=== PATIENT | female | born 1995 | race Caucasian/White ===

== ENCOUNTER 2020-05-05 18:51 | Emergency (ER) | payer OTHER, SELFPAY ==
[2020-05-05 19:10] VITALS: BP 127/73; PULSE 78; RESP 17; TEMP 36.9; O2SAT 99
--- NOTE | 2020-05-05 19:13 | ED.DENTAL ---
HPI - Dental/Oral General Chief complaint: Dental/Oral Stated complaint: infected teeth Time Seen by Provider: 05/05/20 19:13 Source: patient Mode of arrival: ambulatory Limitations: no limitations History of Present Illness HPI Narrative: 24-year-old woman comes in today complaining of a toothache that has gotten worse over the last 3 days. He states that the pain is in her right upper molars she also has some pain in her right lower molars and her left lower molars. She has had pain off and on for a year. She denies fever, nausea, vomiting, difficulty swallowing, difficulty breathing. She complains of a right earache as well. MD Complaint: tooth pain Teeth map: 1. Pain Onset (ago): day(s) (3) Duration: constant Severity: moderate Relieving factors: nothing Exacerbating factors: chewing and cold Context: history of dental caries Associated symptoms: ear pain Treatment prior to arrival: oral analgesic Related Data Allergies Allergy/AdvReac Type Severity Reaction Status Date / Time Bleach (Sodium Hypochlorite) Allergy Unknown Verified 11/22/18 16:21 Review of Systems Constitutional: Constitutional: Denies chills, Denies fever(s) and Denies weakness Eyes: Eyes: Denies change in vision and Denies photophobia ENT: Denies dysphagia, Denies nasal congestion and Denies sore throat Cardiovascular: Cardiovascular: Denies chest pain and Denies radiating jaw, neck or arm pain Respiratory: Respiratory: Denies cough, Denies dyspnea and Denies wheezing Gastrointestinal: Gastrointestinal: Denies nausea and Denies vomiting Musculoskeletal: Musculoskeletal: Denies arthralgias and Denies joint swelling Integumentary/Breasts: Skin/Breast: Denies pruritus, Denies erythema and Denies rash Neurologic: Denies vertigo, Denies dizziness, Denies syncope, Denies headache(s), Denies focal weakness and Denies numbness Hematologic/Lymphatic: Hematologic/Lymphatic: Denies easy bleeding and Denies easy bruising Allergic/Immunologic: Allergic/Immunologic: Denies lip swelling and Denies wheezing PMFSH Social History Social History Smoking status: Current some day smoker Tobacco type: cigarettes Alcohol intake: current Alcohol use details: occasional Substance use: current Substance use type: marijuana Living arrangements: with family Exam Const: General: healthy appearing, no acute distress and alert Orientation/consciousness: patient oriented x3 Limitations: no limitations HENMT: Head: normal to inspection Ears: external ears normal, TM's normal bilaterally and EAC's normal Face and sinus: normal facial exam Mouth: Yes Normal oral and palatal mucosa present and Yes moist mucous membranes Throat: posterior oropharynx normal and uvula midline Other: Tender at #1. No gingival or buccal swelling. Eyes: Conjunctivae: conjunctivae normal Pupils: Equal, round and reactive pupils present EOM: EOMs intact bilaterally Neck: Neck: normal visual inspection and no lymphadenopathy Resp: Effort & Inspection: normal respiratory effort and not labored Auscultation: clear to auscultation bilaterally, no rales, no rhonchi and no wheezes Cardio: Rate: regular rate Rhythm: regular rhythm Heart sounds: no murmurs Skin: General skin exam: normal color, no jaundice and no pallor Rashes: no rashes Neuro: General: patient oriented x3, moves all extremities, no focal motor deficits and CN's II-XI intact bilaterally Speech: normal speech Extrem: General: normal to inspection and no clubbing, cyanosis or edema Psych: Appearance: grossly normal and well kempt Mental Status: mental status grossly normal Affect: normal affect Attitude: cooperative Thought content: Yes Normal thought content present Discharge Plan Discharge Clinical Impression: Toothache Patient Disposition: Home, Self-Care Condition: Stable Instructions: Antibiotic Form, Toothache (ED)
== END 2020-05-05 19:30 | disposition home or self-care (01) ==
PROVIDERS: Emergency Provider Emergency Medicine; PCP Internal Medicine
DX: K08.89 Other specified disorders of teeth and supporting structures (principal)
CPT/HCPCS: 99283

== ENCOUNTER 2020-06-09 14:03 | Emergency (ER) | payer OTHER, SELFPAY ==
[2020-06-09 14:04] VITALS: BP 144/83; PULSE 52; RESP 20; TEMP 36.9; O2SAT 99
--- NOTE | 2020-06-09 14:08 | ED.ABDPAIN ---
HPI - Abdominal Pain General Chief Complaint: Abdominal Pain Stated Complaint: emesis Time Seen by Provider: 06/09/20 14:05 Source: RN notes reviewed History of Present Illness HPI narrative: Patient presents emergency department from home via EMS for abdominal pain. Patient states that she has had abdominal pain described as cramping for the past 2 days. Is been associated nausea vomiting and diarrhea. States he took no previous medication for the symptoms. Denies any fevers or chills chest pain shortness of breath or any other symptoms Related Data Allergies Allergy/AdvReac Type Severity Reaction Status Date / Time Bleach (Sodium Hypochlorite) Allergy Unknown Rash Verified 06/09/20 14:09 Review of Systems Review of Systems: Narrative: Gen.: Denies fevers or chills ENT: Denies congestion Respiratory: Denies shortness of breath or cough CV: Denies chest pain or palpitations GI: See HPI denies burning, urgency, frequency or hematuria Musculoskeletal: Denies back pain or muscle pain Neuro: Denies numbness, tingling, weakness or focal weakness Skin: Denies rash Except as documented, all other systems reviewed and negative FOR[facility]LY [facility], [facility] Past Medical History Medical History (Updated 06/09/20 @ 17:11 by Ivan Vanegas DO) Patient denies significant medical history Social History Social History (Updated 06/09/20 @ 14:08 by Ivan Vanegas DO) Smoking status: Former smoker Tobacco type: cigarettes Alcohol intake: current Substance use: current Substance use type: marijuana Exam Narrative: Exam Narrative: APPEARANCE: No acute distress, nontoxic, resting in bed HEENT: Normocephalic, atraumatic, oromucosa dry RESPIRATORY: No respiratory distress, clear to auscultation bilaterally with no rhonchi wheezing or rales CARDIOVASCULAR: RRR s murmur ABDOMINAL: Soft, nondistended, diffusely tender to palpation, no rebound or guarding MUSCULOSKELETAl: Moves all extremities. No clubbing, cyanosis or edema. NEURO: Awake and alert. Following commands, speech normal, no focal deficits SKIN:: Warm, dry. Normal Color PSYCHIATRIC: Normal affect/mood Course Course Emergency Course: Patient states that they are feeling much better at this time. States abdominal pain has resolved. Repeat abdominal exam shows the patient's abdomen to be soft and nontender. Discussed with patient results of workup and diagnosis. Discussed need for follow-up with primary care physician, reasons to return to the emergency department in proper use of medication. Patient understands and agrees to current treatment plan Vital Signs Vital signs: Vital Signs Temperature 98.4 F 06/09/20 14:04 Pulse Rate 52 L 06/09/20 14:04 Respiratory Rate 06/09/20 14:04 Blood Pressure 144/83 H 06/09/20 14:04 Pulse Oximetry 99 06/09/20 14:04 Temperature 98.4 F 06/09/20 14:04 Pulse Rate 52 L 06/09/20 14:04 Respiratory Rate 06/09/20 14:04 Blood Pressure 144/83 H 06/09/20 14:04 Pulse Oximetry 99 06/09/20 14:04 MDM - Abdominal Pain MDM Narrative Medical decision making narrative: Patient's abdomen is soft without significant pain or signs of surgical abdomen on serial exams. Lab and x-ray evaluations are reviewed and patient is felt to be a reasonable candidate for outpatient management. Patient was instructed as to limitations of x-ray and laboratory evaluation and encouraged to return to ED or primary physician for repeat exam in 12 hours if continued or worsening pain Lab Data Result diagrams: 06/09/20 14:19 06/09/20 14:19 Labs: Lab Results 06/09/20 06/09/20 06/09/20 Range/Units 14:19 14:19 15:43 WBC 18.6 H (4.5-10.0) K/mm3 RBC 5.01 (4.2-5.4) M/mm3 Hgb 15.5 H (12.0-15.0) g/dL Hct 44.0 (37.0-47.0) % MCV 87.8 (80-100) fl MCH 30.9 (26-34) pg MCHC 35.2 (32-36) g/dl RDW 12.9 (11.5-14.5) % Plt Count 256 (150-375) k/mm3 MPV 10.9 H (7.4-10.4) fl Im
[2020-06-09 14:27] LABS: Basophils Absolute Auto 0.1 K/mm3 (0.0-0.1); Basophils Percent Auto 0.3 % (0.2-1.2); Eosinophils Percent Auto 0.1 % (0-4.4); Hemoglobin 15.5 g/dL (12.0-15.0); Immature Granulocyte Absolute 0.11 K/mm3 (0.00-0.031); Immature Granulocyte Percent A 0.6 % (0-0.5); Immature Platelet Fraction Pct 7.7 % (0.9-11.2); Lymphocytes Absolute Auto 1.54 K/mm3 (0.9-3.2); Lymphocytes Percent Auto 8.3 % (18.3-44.2); Mean Corpuscular HGB Conc 35.2 g/dl (32-36); Mean Corpuscular Hemoglobin 30.9 pg (26-34); Mean Corpuscular Volume 87.8 fl (80-100); Mean Platelet Volume 10.9 fl (7.4-10.4); Monocytes Absolute Auto 1.3 K/mm3 (0.1-0.6); Monocytes Percent Auto 7.2 % (2.6-8.5); Neutrophils Absolute Auto 15.6 K/mm3 (1.3-6.7); Neutrophils Percent Auto 83.5 % (45.5-73.1); Platelet Count Result 256 k/mm3 (150-375); Red Blood Count 5.01 M/mm3 (4.2-5.4); Red Cell Distribution Width 12.9 % (11.5-14.5); White Blood Count 18.6 K/mm3 (4.5-10.0)
[2020-06-09 14:29] LABS: Platelet Estimate Adequate (Adequate)
[2020-06-09 14:47] LABS: Alanine Aminotransferase 13 U/L (4-35); Albumin Level 4.8 g/dL (3.5-5.1); Alkaline Phosphatase 90 U/L (38-126); Anion Gap 18.2 mmol/L (7-16); Aspartate Amino Transferase 21 U/L (14-36); Bilirubin,Total 1.5 mg/dL (0.2-1.3); Blood Urea Nitrogen 8 mg/dL (7-17); Calcium 9.7 mg/dL (8.4-10.2); Carbon Dioxide 19 mmol/L (22-30); Chloride 103 mmol/L (98-107); Estimated CRCL calculation 172 ml/min; Estimated Glomerular Filt Rate > 60; Glucose 112 mg/dL (65-105); Lipase 43 U/L (23-300); Potassium 3.2 mmol/L (3.4-5.0); Sodium 137 mmol/L (137-145)
[2020-06-09] MEDS: ONDANSETRON INJ 4 MG/2 ML VIAL IV PUSH (14:47)
[2020-06-09] MEDS: SODIUM CHLORIDE 0.9% IV 1,000 ML 999 ML IV CONT ×2 (14:47→15:45)
[2020-06-09 15:58] LABS: Add Urine Microscopic? YES; Appearance Urine Clear (Clear); Bacteria Urine Trace /hpf; Bilirubin Urine Negative (Negative); Blood Urine Negative (Negative); Color Urine Yellow (Yellow); Glucose Urine UA Negative (Negative); Ketones Urine 2+ mg/dL (Negative); Leukocyte Esterase Ur Negative LEU/UL (Negative); Mucus Urine Heavy /lpf; Nitrate Urine Negative (Negative); Protein Urine 2+ mg/dL (Negative); RBC Urine 0-2 /hpf (0-2); Squamous Epithelial Cell Urine Moderate /hpf (Few); Urobilinogen Urine Negative mg/dL (<2.0)
[2020-06-09 16:12] LABS: Specific Grav Ur 1.038 (1.001-1.035)
--- NOTE | 2020-06-09 17:08 | PC.NURSE ---
Denies further heartburn. No emesis since receiving meds.
[2020-06-09] MEDS: POTASSIUM CHLORIDE 20 MEQ TABLET PO (17:24)
== END 2020-06-09 17:24 | disposition home or self-care (01) ==
PROVIDERS: Emergency Provider Emergency Medicine; PCP Internal Medicine
DX: R10.9 Unspecified abdominal pain (principal); R11.2 Nausea with vomiting, unspecified; R19.7 Diarrhea, unspecified; Z87.891 Personal history of nicotine dependence
CPT/HCPCS: 36415; 80053; 81001; 81025; 83690; 85025; 85055; 96361; 96374; 96375; 99284; A9270; J0131; J2405; J7030

== ENCOUNTER 2021-10-31 10:16 | Emergency (ER) | payer OTHER, SELFPAY ==
--- NOTE | 2021-10-31 10:35 | ED.DENTAL ---
HPI - Dental/Oral General Chief complaint: Dental/Oral Stated complaint: Infected tooth Source: patient Mode of arrival: ambulatory Limitations: no limitations History of Present Illness HPI Narrative: Left lower tooth pain, having pain for several days, no fevers no N/v. Calling dentists to get appointment. Alternating tylenol and motrin. Complaint: tooth pain Onset (ago): day(s) Duration: constant Severity: severe Context: history of dental caries Associated symptoms: gum swelling Treatment prior to arrival: oral analgesic (tylenol and motrin) and other Related Data Allergies Allergy/AdvReac Type Severity Reaction Status Date / Time Bleach (Sodium Hypochlorite) Allergy Unknown Rash Verified 06/09/20 14:09 Review of Systems Constitutional: Constitutional: Reports no additional constitutional complaints Eyes: Eyes: Reports no additional eye complaints ENT: Reports system reviewed and no additional complaints, except as documented Cardiovascular: Cardiovascular: Reports no additional cardiovascular complaints Respiratory: Respiratory: Reports no additional respiratory complaints Gastrointestinal: Gastrointestinal: Reports no additional gastrointestinal complaints Musculoskeletal: Musculoskeletal: Reports no additional musculoskeletal complaints Integumentary/Breasts: Skin/Breast: Reports system reviewed and no additional complaints, except as docu Neurologic: Reports system reviewed and no additional complaints, except as documented Psychiatric: Psychiatric: Reports no additional psychiatric complaints Endocrine: Endocrine: Reports no additional endocrine complaints Hematologic/Lymphatic: Hematologic/Lymphatic: Reports no additional hematologic/lymphatic complaints Allergic/Immunologic: Allergic/Immunologic: Reports no additional allergic/immunologic complaints PMFSH Past Medical History Medical History Patient denies significant medical history Social History Social History Smoking status: Former smoker Tobacco type: cigarettes Alcohol intake: current Alcohol use details: occasional Substance use: current Substance use type: marijuana Exam Const: General: no acute distress and alert Nutritional Appearance: well nourished Orientation/consciousness: patient oriented x3 HENMT: Head: normal to inspection Teeth and gingiva: abnormal tooth and associated gingiva (dental fracture and localized gum swelling. No abscess, no erythema) Eyes: Conjunctivae: conjunctivae normal Pupils: Equal, round and reactive pupils present EOM: EOMs intact bilaterally Neck: Neck: normal visual inspection and no lymphadenopathy Chest: Chest palpation & inspection: normal inspection of the chest Resp: Effort & Inspection: normal respiratory effort Auscultation: clear to auscultation bilaterally Cardio: Rate: regular rate Rhythm: regular rhythm GI: GI Palp: Yes Soft to palpation and No Tenderness to palpation present (GI) : General: Yes no CVA tenderness Back/Spine/Pelvis: Back: no CVA tenderness Skin: General skin exam: normal color Rashes: no rashes Neuro: General: patient oriented x3 and moves all extremities Extrem: General: normal to inspection and no edema Psych: Appearance: grossly normal Mental Status: mental status grossly normal Discharge Plan Discharge Clinical Impression: Toothache, Dental abscess Patient Disposition: Home, Self-Care Condition: Stable Instructions: Antibiotic Form, Dental Abscess (ED) Prescriptions: New amoxicillin-pot clavulanate [Augmentin] 875-125 mg tablet 1 tablet PO Q12H Qty: 20 RF: 0 No Action ibuprofen [IBU] 600 mg tablet 600 mg PO Q6H PRN (Reason: pain) Qty: 20 RF: 0 ondansetron 4 mg tablet,disintegrating 4 mg PO Q6H PRN (Reason: nausea and vomiting) Qty: 10 RF: 0 famotidine [Pepcid] 20 mg tab
[2021-10-31 10:36] VITALS: BP 139/84; PULSE 62; RESP 20; TEMP 37.1; O2SAT 99
[2021-10-31 10:57] VITALS: PULSE 60; RESP 20; O2SAT 98
== END 2021-10-31 10:58 | disposition home or self-care (01) ==
PROVIDERS: Emergency Provider Emergency Medicine; PCP Internal Medicine
DX: K08.89 Other specified disorders of teeth and supporting structures (principal); K04.7 Periapical abscess without sinus
CPT/HCPCS: 99283

== ENCOUNTER 2023-01-16 03:50 | Emergency (ER) | payer OTHER, SELFPAY ==
[2023-01-16 03:59] VITALS: BP 132/100; PULSE 68; RESP 20; TEMP 36.4; O2SAT 100
--- NOTE | 2023-01-16 04:09 | ED.GENADULT ---
HPI - General Adult General Chief complaint: Unspecified Stated complaint: Vomiting History of Present Illness HPI narrative: Pt presents with nausea, vomiting, and diarrhea for 4 days. Pt says it's worst in morning. She vomits 4-5 times during day and has several loose stools in a day. Pt says she is not able to keep anything down. Pt denies fever or abdominal pain Related Data Allergies Allergy/AdvReac Type Severity Reaction Status Date / Time Bleach (Sodium Hypochlorite) Allergy Unknown Rash Verified 06/09/20 14:09 fluoxetine AdvReac Other Verified 01/16/23 04:04 Review of Systems Review of Systems: All systems reviewed & are unremarkable except as noted in HPI and below PMFSH Past Medical History Medical History Patient denies significant medical history Social History Social History Smoking status: Former smoker Tobacco type: cigarettes Alcohol intake: current Alcohol use details: occasional Substance use: current Substance use type: marijuana Living arrangements: with family Exam Const: General: cooperative, healthy appearing, no acute distress and alert HENMT: Mouth: Yes Normal oral and palatal mucosa present Neck: Neck: normal visual inspection, full ROM, no lymphadenopathy and no meningeal signs Resp: Effort & Inspection: normal respiratory effort and able to speak in complete sentences Auscultation: clear to auscultation bilaterally Cardio: Rate: regular rate Rhythm: regular rhythm GI: Inspection: normal to inspection GI Palp: Yes Soft to palpation and No Tenderness to palpation present (GI) Auscultation: normal bowel sounds Back/Spine/Pelvis: Back: no CVA tenderness Skin: General skin exam: normal color and no rashes or lesions noted Neuro: General: patient oriented x3, moves all extremities and no focal motor deficits Extrem: General: normal to inspection, full ROM and no clubbing, cyanosis or edema Psych: Appearance: grossly normal Mental Status: mental status grossly normal Speech and movement: Normal speech and movement present Affect: normal affect Attitude: cooperative Thought process: Normal thought process present Thought content: Yes Normal thought content present Insight: Good insight present (Psych) Judgement: Good judgement present (Psych) Course Vital Signs Vital signs: Vital Signs Temperature 97.5 F L 01/16/23 03:59 Pulse Rate 68 01/16/23 03:59 Respiratory Rate 20 01/16/23 03:59 Blood Pressure 132/100 H 01/16/23 03:59 Pulse Oximetry 100 01/16/23 03:59 Oxygen Delivery Room Air 01/16/23 03:59 Temperature 97.5 F L 01/16/23 03:59 Pulse Rate 55 L 01/16/23 06:30 Respiratory Rate 18 01/16/23 06:30 Blood Pressure 131/87 01/16/23 06:30 Pulse Oximetry 100 01/16/23 06:30 Oxygen Delivery Room Air 01/16/23 03:59 Medical Decision Making MDM Narrative Medical decision making narrative: gastroentertitis most likely with non tender abdomen. pt says is not but will check due to morning predominence. may have electrolyte abnormality so will check labs give IVF and zofran. zofran x2, still nauseated, compazine 10 mg still nauseated but not vomiting. Pt admitted to cannabis use but unable to give haldol because of potential qt prolongation with zofran, gave reglan and benadryl with some relief. 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 Vital Signs Vital Signs: Vital Signs Temperature 97.5 F L 01/16/23 03:59 Pulse Rate 68 01/16/23 03:59 Respiratory Rate 20 01/16/23 03:59 Blood Pressure 132/100 H 01/16/23 03:59 Pulse Oximetry 100 01/16/23 03:59 Oxygen Delivery Room Air 01/16/23 03:59 Temperature 97.5 F L 01/16/23 03:59 Pulse Rate 55 L 01/16/23 06:30 Respiratory Rate 18 01/16/23 06:30 Blood Pre
[2023-01-16] MEDS: SODIUM CHLORIDE 0.9% IV 1,000 ML 999 ML IV CONT ×2 (04:13→05:08)
[2023-01-16] MEDS: ONDANSETRON INJ 4 MG/2 ML VIAL IV PUSH ×2 (04:18→04:33)
[2023-01-16 04:34] LABS: Basophils Absolute Auto 0.04 K/mm3 (0.00-0.10); Basophils Percent Auto 0.4 % (0.0-1.0); Eosinophils Absolute Auto 0.05 K/mm3 (0.02-0.50); Eosinophils Percent Auto 0.5 % (1.0-6.0); Hematocrit 40.1 % (35.0-49.0); Hemoglobin 13.8 g/dL (12.0-15.0); Immature Granulocyte Absolute 0.03 K/mm3 (0.00-0.00); Immature Granulocyte Percent A 0.3 % (0.0-0.0); Lymphocytes Absolute Auto 1.64 K/mm3 (1.10-4.50); Lymphocytes Percent Auto 15.6 % (18.0-42.0); Mean Corpuscular HGB Conc 34.4 g/dL (32.0-36.0); Mean Corpuscular Hemoglobin 30.4 pg (27.0-31.0); Mean Corpuscular Volume 88.3 fL (78.0-102.0); Mean Platelet Volume 10.9 fl (9.2-11.8); Monocytes Absolute Auto 0.78 K/mm3 (0.10-0.90); Monocytes Percent Auto 7.4 % (2.0-11.0); Neutrophils Percent Auto 75.8 % (50.0-70.0); Platelet Count Result 288 K/mm3 (150-420); Red Blood Count 4.54 M/mm3 (4.20-5.40); Red Cell Distribution Width 12.5 % (11.6-14.4); White Blood Count 10.5 K/mm3 (4.8-10.8)
[2023-01-16 04:42] LABS: SPREG INTERNAL CONTROL Positive; Serum Qual hCG Negative
[2023-01-16 04:49] LABS: Alanine Aminotransferase 9 U/L (14-59); Albumin Level 4.3 g/dL (3.4-5.0); Alkaline Phosphatase 76 U/L (46-116); Anion Gap 15 mmol/L (8-16); Aspartate Amino Transferase 15 U/L (15-37); Bilirubin,Total 1.7 mg/dL (0.00-1.00); Blood Urea Nitrogen 8 mg/dL (7-18); Calcium 9.4 mg/dL (8.5-10.1); Carbon Dioxide 23 mmol/L (21-32); Chloride 105 mmol/L (98-108); Estimated CRCL calculation 96 ml/min; Estimated Glomerular Filt Rate > 60; Glucose 151 mg/dL (70-99); Osmolality Calculated 297 mOsm/kg (285-295); Potassium 2.7 mmol/L (3.5-5.1); Sodium 143 mmol/L (136-145); Total Protein 7.5 g/dL (6.4-8.2)
[2023-01-16] MEDS: KCL 20 MEQ/SW 100 ML 100 ML 50 MEQ IVPB (05:06)
[2023-01-16 05:31] VITALS: BP 125/101; PULSE 70; RESP 20; O2SAT 100
[2023-01-16] MEDS: PROCHLORPERAZINE EDISYLATE 10 MG/2 ML VIAL IV PUSH (05:47)
[2023-01-16 06:02] VITALS: BP 131/87; PULSE 54; RESP 18; O2SAT 97
[2023-01-16] MEDS: METOCLOPRAMIDE HCL INJ 10 MG/2 ML VIAL IV PUSH (06:13)
[2023-01-16 06:30] VITALS: BP 131/87; PULSE 55; RESP 18; O2SAT 100
[2023-01-16] MEDS: diphenhydrAMINE HCl INJ 50 MG/ML VIAL IV PUSH (06:32)
== END 2023-01-16 07:11 | disposition home or self-care (01) ==
PROVIDERS: Emergency Provider Emergency Medicine; PCP Internal Medicine
DX: R11.10 Vomiting, unspecified (principal); Z87.891 Personal history of nicotine dependence
CPT/HCPCS: 36415; 80053; 84703; 85025; 96361; 96365; 96366; 96375; 99284; J0780; J1200; J2405; J2765; J3480; J7030

== ENCOUNTER 2023-06-23 18:08 | Emergency (ER) | payer OTHER, SELFPAY ==
[2023-06-23 18:08] VITALS: BP 143/91; PULSE 66; RESP 18; TEMP 36.7; O2SAT 100
--- NOTE | 2023-06-23 18:25 | ED.GENADULT ---
HPI - General Adult General Chief complaint: Nausea/Vomiting/Diarrhea Stated complaint: VOMITING Time Seen by Provider: 06/23/23 18:14 Source: patient History of Present Illness HPI narrative: 27-year-old female presenting with nausea and vomiting. Patient states her symptoms started approximately 4 days ago. She describes her symptoms as near constant nausea with multiple episodes of vomiting. She denies any abdominal pain or recent illnesses. Patient states she has a history of similar symptoms. Related Data Allergies Allergy/AdvReac Type Severity Reaction Status Date / Time Bleach (Sodium Hypochlorite) Allergy Unknown Rash Verified 06/23/23 18:25 fluoxetine AdvReac Other Verified 06/23/23 18:25 [facility] Past Medical History Medical History Patient denies significant medical history Social History Social History Smoking status: Former smoker Tobacco type: cigarettes Alcohol intake: current Alcohol use details: occasional Substance use: current Substance use type: marijuana Living arrangements: with family Exam Const: General: healthy appearing and no acute distress HENMT: Head: normal to inspection and no contusions Ears: external ears normal Face/Nose/Sinus: Normal external nose present and Normal nares present Face and sinus: normal facial exam Mouth: Yes lip normal Teeth and gingiva: dentition normal Eyes: Conjunctivae: conjunctivae normal EOM: EOMs intact bilaterally Neck: Neck: normal visual inspection and no meningeal signs Chest: Chest palpation & inspection: normal inspection of the chest and normal inspection of the chest Resp: Effort & Inspection: normal respiratory effort and not labored Cardio: Rate: regular rate Rhythm: regular rhythm GI: Inspection: non-distended GI Palp: Yes Soft to palpation and No Tenderness to palpation present (GI) Other: Soft and nontender abdomen. Negative Santiago's. Negative McBurney's. : General: Yes bladder normal to palpation and Yes no CVA tenderness Back/Spine/Pelvis: Cervical Spine: No collar present Skin: General skin exam: normal color, no jaundice and no pallor Neuro: General: patient oriented x3 and moves all extremities Extrem: General: normal to inspection and no clubbing, cyanosis or edema Psych: Mental Status: mental status grossly normal Affect: normal affect Course Vital Signs Vital signs: Vital Signs Temperature 36.7 C 06/23/23 18:08 Pulse Rate 66 06/23/23 18:08 Respiratory Rate 18 06/23/23 18:08 Blood Pressure 143/91 H 06/23/23 18:08 Pulse Oximetry 100 06/23/23 18:08 Oxygen Delivery Room Air 06/23/23 18:08 Temperature 36.7 C 06/23/23 18:08 Pulse Rate 62 06/23/23 19:09 Respiratory Rate 18 06/23/23 19:09 Blood Pressure 107/52 L 06/23/23 19:09 Pulse Oximetry 99 06/23/23 19:09 Oxygen Delivery Room Air 06/23/23 19:09 Medical Decision Making MDM Narrative Medical decision making narrative: Differential diagnosis includes but not limited to bowel obstruction versus biliary pathology versus hepatitis versus GERD versus gastroenteritis versus pancreatitis. Will evaluate labs. No indication for imaging at this time. Angelique treat with IV medications and fluids. Patient with significant symptom improvement following IV Reglan and Benadryl and fluids. Laboratory workup consistent with mild dehydration. She has been without symptoms in the emergency department. She did well p.o. challenge. She is ready to go home. I will prescribe Pepcid and few doses of Reglan. Unknown etiology but this could be related to her chronic GERD. She also reports chronic nausea and vomiting. She does have a sand bobber that she follows up with. She was encouraged to follow up with him. Possible urinary tract infection on UA. Will start on Keflex. Patient wa
[2023-06-23 18:40] LABS: Basophils Absolute Auto 0.03 K/mm3 (0.00-0.10); Basophils Percent Auto 0.3 % (0.0-1.0); Hematocrit 44.1 % (35.0-49.0); Hemoglobin 15.9 g/dL (12.0-15.0); Immature Granulocyte Absolute 0.06 K/mm3 (0.00-0.00); Immature Granulocyte Percent A 0.5 % (0.0-0.0); Lymphocytes Absolute Auto 0.75 K/mm3 (1.10-4.50); Lymphocytes Percent Auto 6.4 % (18.0-42.0); Mean Corpuscular HGB Conc 36.1 g/dL (32.0-36.0); Mean Corpuscular Hemoglobin 31.4 pg (27.0-31.0); Monocytes Absolute Auto 0.74 K/mm3 (0.10-0.90); Monocytes Percent Auto 6.3 % (2.0-11.0); Neutrophils Absolute Auto 10.2 K/mm3 (1.7-7.2); Neutrophils Percent Auto 86.5 % (50.0-70.0); Platelet Count Result 283 K/mm3 (150-420); Red Blood Count 5.07 M/mm3 (4.20-5.40); Red Cell Distribution Width 12.1 % (11.6-14.4); White Blood Count 11.8 K/mm3 (4.8-10.8)
[2023-06-23] MEDS: SODIUM CHLORIDE 0.9% IV 1,000 ML 999 ML IV CONT (18:40)
[2023-06-23] MEDS: diphenhydrAMINE HCl INJ 50 MG/ML VIAL IV PUSH (18:40)
[2023-06-23] MEDS: METOCLOPRAMIDE HCL INJ 10 MG/2 ML VIAL IV PUSH (18:41)
[2023-06-23] MEDS: FAMOTIDINE 20 MG/2 ML VIAL IV PUSH (18:47)
[2023-06-23 18:54] LABS: Alanine Aminotransferase 29 U/L (14-59); Albumin Level 4.5 g/dL (3.4-5.0); Alkaline Phosphatase 77 U/L (46-116); Anion Gap 15 mmol/L (8-16); Aspartate Amino Transferase 22 U/L (15-37); Blood Urea Nitrogen 13 mg/dL (7-18); Calcium 9.5 mg/dL (8.5-10.1); Carbon Dioxide 26 mmol/L (21-32); Chloride 98 mmol/L (98-108); Estimated CRCL calculation 98 ml/min; Estimated Glomerular Filt Rate > 60; Glucose 118 mg/dL (70-99); Lipase 24 U/L (16-77); Osmolality Calculated 289 mOsm/kg (285-295); Potassium 3.2 mmol/L (3.5-5.1); Sodium 139 mmol/L (136-145); Total Protein 7.8 g/dL (6.4-8.2)
--- NOTE | 2023-06-23 19:01 | PC.NURSE ---
Patient report given to KEYONA Montez. IVF infusing and need for urine specimen to be given by patient. mother at bedside.
[2023-06-23 19:09] VITALS: BP 107/52; PULSE 62; RESP 18; O2SAT 99
[2023-06-23 19:17] LABS: Appearance Urine Clear (Clear); Bilirubin Urine 1+ (Negative); Blood Urine 3+ (Negative); Color Urine Yellow (Yellow); Glucose Urine UA Negative (Negative); Ketones Urine 3+ (Negative); Leukocyte Esterase Ur Negative LEU/UL (Negative); Nitrate Urine Negative (Negative); Protein Urine 1+ (Negative); Specific Grav Ur >= 1.030 (1.010-1.020)
[2023-06-23 19:19] LABS: Pregnancy On Board Control Positive; Urine Pregnancy Test Negative
[2023-06-23 19:23] LABS: Add Urine Microscopic? YES; Bacteria Urine 3+ /hpf; Mucus Urine Moderate /lpf; Squamous Epithelial Cell Urine Many /hpf (Few); WBC Urine 0-3 /hpf (0-3)
[2023-06-23 19:42] VITALS: BP 104/57; PULSE 56; RESP 18; TEMP 36.6; O2SAT 99
== END 2023-06-23 19:53 | disposition home or self-care (01) ==
PROVIDERS: Emergency Provider Emergency Medicine; PCP Nurse Practitioner Family
DX: K21.9 Gastro-esophageal reflux disease without esophagitis (principal); R11.2 Nausea with vomiting, unspecified; Z87.891 Personal history of nicotine dependence
CPT/HCPCS: 36415; 80053; 81001; 81025; 83690; 85025; 96361; 96374; 96375; 99284; J1200; J2765; J7030